=== PATIENT | male | born 1965 | race Caucasian/White ===

== ENCOUNTER 2018-12-02 11:00 | Emergency (ER) | payer BC, SELFPAY ==
[2018-12-02] MEDS ORDERED: Ketorolac 60 MG/2 ML SDV IM ONE (11:21)
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
[2018-12-02 16:30] VITALS: BP 147/64
--- NOTE | 2018-12-04 09:07 | CR ---
Chest and bilateral ribs: Frontal view of the chest was obtained as well as additional views of both sides of the ribs. Comparison: No prior chest imaging is available. Heart size is normal. Tortuous thoracic aorta is seen. Lungs are clear with no acute parenchymal change. No discrete fracture or other rib abnormality is appreciated. Impression: 1. Nothing acute is seen on frontal chest x-ray. No discrete rib fracture is appreciated. Nondisplaced fracture could be missed. Diagnostic code #1
--- NOTE | 2018-12-04 09:07 | CR ---
Left knee: Four views of the left knee were obtained. Comparison: No prior knee study. Small joint effusion is seen. Medial and lateral joint compartments are maintained in height. Minimal lucency is seen around the lateral tibial plateau. Difficult to exclude nondisplaced lateral tibial plateau fracture. No additional abnormality is appreciated. Impression: 1. Joint effusion. 2. Minimal lucency within the lateral tibial plateau and difficult to exclude a nondisplaced fracture. If patient's symptoms warrant further evaluation, knee CT could then be considered. Diagnostic code #3
== END 2018-12-02 13:19 | disposition home or self-care (01) ==
LOC: JD.ED 11:00
DX: S50.812A Abrasion of left forearm, initial encounter (principal); S80.211A Abrasion, right knee, initial encounter; S60.811A Abrasion of right wrist, initial encounter; S00.81XA Abrasion of other part of head, initial encounter; M25.562 Pain in left knee; C44.519 Basal cell carcinoma of skin of other part of trunk; R07.9 Chest pain, unspecified; I10 Essential (primary) hypertension; F17.210 Nicotine dependence, cigarettes, uncomplicated; Z79.899 Other long term (current) drug therapy; V86.56XA Driver of dirt bike or motor/cross bike injured in nontraffic accident, initial encounter
CPT/HCPCS: 71111; 73564; 96372; 99284; J1885